=== PATIENT | female | born 1935 | race Caucasian/White ===

== ENCOUNTER → 2019-02-19 11:19 | Outpatient (CLI) | payer MEDICARE, OTHER, SELFPAY ==
--- NOTE | 2019-02-19 11:23 | US_ITS ---
STUDY: RENAL ULTRASOUND - COMPLETE REASON FOR EXAM: Female, 83 years old. Chronic renal disease TECHNIQUE: Ultrasound evaluation of the kidneys was performed with real-time and static maloney-scale imaging. COMPARISON: None. FINDINGS: RIGHT KIDNEY: Normal location of the right kidney, which is normal in size. The right kidney measures 11.3 x 4.1 x 4.3 cm. There is a normal cortex of the right kidney. The renal cortex measures 1.2 cm. There is no right renal mass or cyst. There are no right renal calculi. There is no right hydronephrosis. DISTAL RIGHT URETER: There is non-visualization of the distal right ureter. There is no demonstrated right ureterovesical junction calculus. There is a visualized right ureteral jet. LEFT KIDNEY: Normal location of the left kidney, which is normal in size. The left kidney measures 10.7 x 3.9 x 5.1 cm. There is a normal cortex of the left kidney. The renal cortex measures 1 cm. There is no left renal mass or cyst. There are no left renal calculi. There is no left hydronephrosis. DISTAL LEFT URETER: There is non-visualization of the distal left ureter. There is no demonstrated left ureterovesical junction calculus. There is a visualized left ureteral jet. Diffusely increased cortical echoes consistent with nonspecific renal parenchymal disease BLADDER: The distended urinary bladder has a volume of 7.2 ml. US/Kidney and Bladder IMPRESSION: Nonspecific renal parenchymal disease Electronically Signed: Phi Mccartney MD at 20:08 EDT , Service support ,
== END ==
PROVIDERS: Family Provider Family Medicine; PCP Family Medicine; Referring Provider Internal Medicine Nephrology; Visit Provider Internal Medicine Nephrology
DX: N18.3 Chronic kidney disease, stage 3 (moderate) (principal)
CPT/HCPCS: 76770

== ENCOUNTER 2021-03-12 08:50 | Inpatient (IN) | payer MEDICARE, OTHER, SELFPAY ==
[2021-03-12] VITALS (10 sets, daily range): BP systolic 121–152; BP diastolic 63–91; PULSE 67–122; RESP 16; TEMP 36.5–37.4; O2SAT 97–99; BMI 31.4; BMI 30.7
--- NOTE | 2021-03-12 09:02 | EKG12_ITS ---
Test Reason : DIZZINESS Blood Pressure : / mmHG Vent. Rate : 090 BPM Atrial Rate : 300 BPM P-R Int : 000 ms QRS Dur : 088 ms QT Int : 378 ms P-R-T Axes : 000 -06 168 degrees QTc Int : 462 ms Atrial fibrillation /Flutter Inferior infarct , age undetermined Nonspecific ST-Segment Abnormality Abnormal ECG Confirmed by MAYO BOSTON, SALINA ([id number]), movie editor ROMEL CLAUDIO ([id number]) on 03/17/2021 8:52:21 AM Referred By: RUTHIE Confirmed By:SALINA HUBER MD
--- NOTE | 2021-03-12 09:02 | CT_ITS ---
EXAM DESCRIPTION: Unenhanced CT scan of the head CLINICAL HISTORY: 85 years Female, dizziness COMPARISON: None. TECHNIQUE: A CT scan of the head was performed without IV contrast in the axial plane. Coronal and sagittal reconstruction images were also obtained. This exam was performed according to our departmental dose-optimization program, which includes automated exposure control, adjustment of the mA and/or kV according to patient size and/or use of iterative reconstruction technique. FINDINGS: The main, medulla, and cerebellum appear to be normal. The ventricles and sulci are normal in size and shape. There are some periventricular hyperintensities identified probably due to arteriosclerotic demyelinating changes. The basal ganglia appear to be normal. The inner and outer tables of the skull are intact. The frontal, ethmoid, maxillary, and sphenoid sinuses are normal. The mastoid air cells are normal. CT/Brain/Head without Contrast IMPRESSION: Normal CT scan of the head. Electronically Signed: Jose Raul Cazares DO at 9:44 EDT Tel , Service support ,
--- NOTE | 2021-03-12 09:12 | EDS_ITS ---
HPI History of Present Illness Chief Complaint: Dizziness Informant: patient and family Onset/Context/Timing Onset: Yesterday Timing: Intermittent Current Severity: Mild Maximum Severity: Mild Narrative Narrative: 85-year-old female history of hypertension. Reportedly had lightheadedness yesterday and fell 5 different times. No LOC. Denies being on any blood thinners. States that she hit her head on some of these falls her back and her right knee. She denies any nausea, vomiting or diarrhea. Denies any fever or chills. No dysuria. No recent med changes. No recent hospitalization. Denies any chest pain, shortness of breath or abdominal pain. Prior similar symptoms: No Recent Illness/Hospitalization: No PFSH PFSH Home Medications diltiazem HCl 180 mg PO DAILY 03/12/21 [History Last Taken Unknown] ergocalciferol (vitamin D2) 1,250 unit PO DAILY 03/12/21 [History Last Taken Unknown] labetalol 200 mg PO DAILY 03/12/21 [History Last Taken Unknown] lisinopril 20 mg PO DAILY 03/12/21 [History Last Taken Unknown] pravastatin 40 mg PO DAILY 03/12/21 [History Last Taken Unknown] triamterene-hydrochlorothiazid 1 tab PO DAILY 03/12/21 [History Last Taken Unknown] Allergy/AdvReac Type Severity Reaction Status Date / Time No Known Allergies Allergy Verified 03/12/21 08:50 Social History Smoking Status: Never smoker ROS ROS ED ROS Narrative Denies recent illness. Review of Systems ROS Unobtainable: Denies due to encephalopathy Constitutional Constitutional ED: Denies chills or fever(s) Eyes Eyes: Denies change in vision ENT ENT ED: Denies ear pain or sore throat Cardiovascular Cardiovascular: Denies chest pain Respiratory/Chest Respiratory/Chest: Denies cough or dyspnea Gastrointestinal Gastrointestinal: Denies abdominal pain, diarrhea, melena, nausea or vomiting Genitourinary Genitourinary ED: Denies dysuria or hematuria Musculoskeletal Musculoskeletal: Denies arthralgias or myalgias Integumentary Denies rash Neurologic Neurologic: Denies headache(s) Psychiatric Psychiatric: Denies depression Endocrine Endocrinology: Denies polyuria Allergic/Immunologic Allergic/Immunologic ED: Denies urticaria EXAM Physical Exam Narrative Exam Narrative: Elderly female no acute distress. Vital signs are stable af ebrile. Complaining of recent lightheadedness. HEENT exam unremarkable. No signs of trauma on her head. Mild tenderness to the scalp. Pupils round react light. No facial droop. Normal speech. Neck nontender. Lungs clear to auscultation bilaterally. Heart exam is consistent with A. fib with a rate of about 90. Abdomen is soft and nontender normal bowel sounds no peritoneal signs. Chest wall nontender. Moving all 4 extremities. Mild tenderness of the right knee. No deformity. He normal range of motion. No swelling. Back nontender. Kyphotic. Spine nontender. No bruising. Neurologically she is awake alert with no focal motor deficits. NIH score 0. Lying in bed. Const Vital Signs: 03/12/21 08:51 03/12/21 09:24 03/12/21 09:58 Temperature 97.7 F L Temperature Source Temporal Pulse Rate 67 Pulse Rate [Lying] 88 Pulse Rate [Sitting] 94 Pulse Rate [Standing] 122 H Respiratory Rate 16 Respiratory Effort Normal Non-Labored Respiratory Pattern Normal Blood Pressure 131/91 H Blood Pressure [Lying] 152/86 H Blood Pressure [Sitting] 138/78 H Blood Pressure [Standing] 128/76 H Blood Pressure Mean 104 Blood Pressure Mean [Lying] 108 Blood Pressure Mean [Sitting] 98 Blood Pressure Mean [Standing] 93 Pulse Ox 97 Oxygen Delivery Method Room Air Positive well nourished and well developed; Negative for unkempt General Appearance ED: well developed and NAD; Negative for unkempt HEENT Reports moist mucous membranes tenderness Eyes PERRL and EOMs intact bilaterally Neck no lymphadenopathy, supple and no JVD General: Negative for tenderness Chest Wall inspection of chest normal and palpation of chest normal Resp normal respiratory effort and clear to auscultation bilaterally Auscultation: Negative for rales, rhonchi, wheezes or diminished lung sounds Cardio no murmurs GI normal to inspection, nondistended, normoactive bowel sounds, non-tender, non- distended and no masses Inspection: Negative for abdominal distention Auscultation: normoactive bowel sounds Palpation: soft; Negative for tender, guarding or rebound tenderness present Back/Spine no CVA tenderness General Back: Negative for CVA tenderness Cervical Spine: Negative for cervical spine tenderness Thoracic Spine / Upper Back: Negative for thoracic spinal tenderness Extremity normal to inspection Extremity Narrative: Tenderness right knee no deformity. Normal flexion- extension. General Extremety ED: Yes tenderness Neuro oriented x3 and CN's II-XII intact bilaterally Sensorium / Orientation: alert; Negative for lethargic or stuporous Motor Exam: strength 5/5 throughout Psych mental status grossly normal Appearance: Negative for unkempt Attitude: No agitated Mood & Affect: Negative for depressed, anxious or tearful Skin no rashes or lesions noted and no wounds MDM MDM MDM Narrative Medical decision making narrative: Elderly female with falls. Exam benign. Mild tenderness to her right knee but no gross deformity. CAT scan of her brain labs orthostatics will be obtained. She will need to be ambulated. Repeat exam patient doing well at 1120. I discussed all test results with both her and the family. Nurses attempted a walker she was extremely unsteady on her feet and they could not really even move past her standing at bedside. Also her blood pressure does seem to drop when she stands and her heart rate goes up. This may be all secondary to her A. fib which appears to be new after speaking to her primary care physician. I have the hospitalist on page. Lab Data Attestation: I reviewed the patient's lab results. Lab results narrative: CBC shows a white count 13.4. Hemoglobin 13. Chemistries unremarkable gap 11. Creatinine 1.83. Urinalysis unremarkable no signs of infection. No nitrates or white cells nor any bacteria. I did speak to her primary care physician renal insufficiency is her baseline. Labs: Laboratory Results - last 24 hr 03/12/21 03/12/21 03/12/21 09:18 09:18 10:13 WBC 13.4 H RBC 4.47 Hgb 13.5 Hct 40.3 MCV 90.2 MCH 30.2 MCHC 33.5 RDW Std Deviation 39.7 RDW Coeff of Fish 12.0 Plt Count 237 MPV 10.9 Immature Gran % (Auto) 0.600 Neut % (Auto) 83.0 H Lymph % (Auto) 6.6 L Butts % (Auto) 9.2 Eos % (Auto) 0.2 Baso % (Auto) 0.4 Absolute Neuts (auto) 11.1 H Absolute Lymphs (auto) 0.89 Nucleated RBC % 0 Sodium 140 Potassium 3.8 Chloride 105 Carbon Dioxide 24.0 Anion Gap 11 BUN 41 H Creatinine 1.83 H Estim Creat Clear Calc 18.10 Est GFR (MDRD) Af Amer 34 L Est GFR (MDRD) Non-Af 28 L BUN/Creatinine Ratio 22.4 H Glucose 158 H Calcium 9.5 Urine Color Yellow Urine Clarity Clear Urine pH 5.0 Ur Specific [place] 1.015 Urine Protein Negative Urine Glucose (UA) Normal Urine Ketones Negative Urine Occult Blood Negative Urine Nitrite Negative Urine Bilirubin Negative Urine Urobilinogen Normal Ur Leukocyte Esterase Negative Urine RBC 0 SEEN Urine WBC 0 SEEN Ur Squamous Epith Cells 0 SEEN Urine Bacteria 0 SEEN Urine Mucus 0 SEEN Radiography Diagnostic Testing: Radiology Impression Brain CT 03/12/21 09:02 IMPRESSION: Normal CT scan of the head. Electronically Signed: Jose Raul Cazares DO at 9:44 EDT Tel , Service support , Knee X-Ray 03/12/21 09:32 IMPRESSION: Chondrocalcinosis is noted involving the articular cartilage of the medial and lateral compartments of the knee. Electronically Signed: Jose Raul Cazares DO at 10:02 EDT Tel , Service support , Chest X-Ray 03/12/21 10:25 IMPRESSION: Normal portable chest. Electronically Signed: Jose Raul Cazares DO at 11:08 EDT Tel , Service support , Chest x-ray portable 1 view shows borderline cardiomegaly no acute process interpreted myself. Left knee x-ray shows chronic changes no acute process interpreted by myself and the radiologist. CAT scan of the brain shows no acute abnormalities read by the radiologist and reviewed by me. Rhythm Strip Rhythm Strip: A-fib Rate: 90 Ectopy: None EKG Initial EKG: Attestation: I personally reviewed and interpreted this EKG as follows: Interpretation: Atrial Fibrillation Comments: Atrial fibrillation rate of 90 no old EKG available available for comparison. Discharge Plan Triage Chief Complaint: Dizziness ED Provider: Savage Souza Dx/Rx/DC Orders Clinical Impression: Fall, Episodic lightheadedness, Atrial fibrillation, Chronic renal insuffici ency Prescriptions: No Action labetalol 200 mg tablet 200 mg PO DAILY RF: 0 pravastatin 40 mg tablet 40 mg PO DAILY RF: 0 diltiazem HCl 180 mg capsule,extended release 24hr 180 mg PO DAILY RF: 0 lisinopril 20 mg tablet 20 mg PO DAILY RF: 0 triamterene-hydrochlorothiazid 75-50 mg tablet 1 tab PO DAILY RF: 0 ergocalciferol (vitamin D2) 1,250 mcg (50,000 unit) capsule 1,250 unit PO DAILY RF: 0 Primary Care Provider: Phi Zapata Referrals: Phi Zapata MD [Primary Care Provider] - Disposition Disposition: Acute Care Hospital [facility]
[2021-03-12 09:23] LABS: Absolute Lymphocyte Count 0.89 X10^3/uL (0.83-4.51); Absolute Neutrophil Count 11.1 X10^3/uL (2.0-7.7); Basophil# 0.05 X10^3/uL; Basophil% 0.4 % (0-1); Eosinophil# 0.03 X10^3/uL; Eosinophils% 0.2 % (0-5); Hematocrit 40.3 % (37-47); Hemoglobin 13.5 g/dL (12.0-15.0); Lymphocyte # 0.89 X10^3/ul (0.83-4.51); Lymphocyte % 6.6 % (19-41); Mean Corp Hgb Conc 33.5 g/dL (32-36); Mean Corpuscular Hgb 30.2 pg (27.0-32.0); Mean Corpuscular Volume 90.2 fL (81-99); Mean Platelet Vol. 10.9 fl (6.2-12.0); Monocyte# 1.23 X10^3/uL; Monocyte% 9.2 % (0-10); NRBC Flagged by Analyzer 0 % (0-5); Neutrophil # 11.12 X10^3/uL (2.7-7.7); Platelet Count 237 K/mm3 (150-450); RBC Distribution Width SD 39.7 fl (35.1-43.9); Red Blood Count 4.47 M/mm3 (4.2-5.4); White Blood Count 13.4 K/mm3 (4.4-11.0)
--- NOTE | 2021-03-12 09:32 | RAD_ITS ---
INDICATION: fall EXAMINATION/TECHNIQUE: X-RAY - RIGHT XR Knee Complete 4 Views or More 4 VIEWS COMPARISON: None. FINDINGS: Studies of the right knee in 4 projections shows chondrocalcinosis involving the articular cartilage of the medial lateral compartments of the right knee. There is no evidence of fracture, dislocation, or bony destruction. RAD/Knee 4 or More Views IMPRESSION: Chondrocalcinosis is noted involving the articular cartilage of the medial and lateral compartments of the knee. Electronically Signed: Jose Raul Cazares DO at 10:02 EDT Tel , Service support ,
[2021-03-12 09:35] LABS: Anion Gap 11 (5-15); BUN 41 mg/dL (7-18); BUN/Creat Ratio 22.4 RATIO (10-20); Calcium,Total 9.5 mg/dL (8.5-10.1); Chloride 105 mmol/L (98-107); Creatinine, Serum 1.83 mg/dL (0.55-1.02); EST Glomerular Filtration Rate 28 mL/min (>60); Est Glom Filt Rate - Afr Amer 34 mL/min (>60); Glucose 158 mg/dL (74-106); Potassium 3.8 mmol/L (3.5-5.1); Sodium Level 140 mmol/L (136-145)
[2021-03-12 10:20] LABS: Bacteria 0 SEEN /hpf (None Seen); Mucous, Urine 0 SEEN /hpf (<or=2+); Red Blood Cells-Urine 0 SEEN /hpf (0-5); Squamous Epithelial Cells - UA 0 SEEN /hpf (5-10); White Blood Cells 0 SEEN /hpf (0-5)
[2021-03-12 10:21] LABS: Color, Urine Yellow (Yellow); Glucose, Dipstick Normal (Normal); Ketone-Dipstick Negative (Negative); Leukocyte Esterase-Dipstick Negative /ul (Negative); Nitrite-Dipstick Negative (Negative); Occult Blood-Urine Negative /ul (Negative); Protein-Dipstick Negative (Negative); Specific Gravity, Urine 1.015 (1.002-1.030); Urine Bilirubin Dipstick Negative (Negative); Urine Clarity Clear (Clear); Urine Urobilinogen Normal (Normal)
--- NOTE | 2021-03-12 10:25 | RAD_ITS ---
EXAM DESCRIPTION: PORTABLE AP CHEST CLINICAL HISTORY: 85 years Female, elevated WBC elevated WBC COMPARISON: None FINDINGS: The thorax is intact. The heart and mediastinum appear to be within normal limits. The lungs appear to be well areated without evidence of pneumonic consolidation or pleural effusion. RAD/Chest 1 View (Portable) IMPRESSION: Normal portable chest. Electronically Signed: Jose Raul Cazares DO at 11:08 EDT Tel , Service support ,
--- NOTE | 2021-03-12 13:08 | ECHOD_ITS ---
Reason For Study: ATRIAL FIB-FLUTTER Procedure This was a 2D Doppler, Color Flow transthoracic echocardiogram. Exam performed portable in patient room. Left Ventricle Normal left ventricle. The estimated ejection fraction is EF 55-60 %. Right Ventricle Normal RV size. Normal systolic function. Atria The left atrium is mildly enlarged. Mitral Valve There is moderate mitral annular calcification. Mild (1+) eccentric mitral valve insufficiency. Tricuspid Valve Normal tricuspid valve. Mild tricuspid valve insufficiency. Aortic Valve Aortic sclerosis, no stenosis. Trivial aortic valve insufficiency. Pulmonic Valve The pulmonic valve is not well visualized. Great Vessels Normal aortic root. Pericardium/Pleural No pericardial effusion. MMode/2D Measurements & Calculations LVIDd: 3.8 cm IVSd: 1.1 cm Ao root diam: 3.0 cm LVIDs: 2.5 cm LVPWd: 1.1 cm RVDd: 3.2 cm FS: 33.3 % LAV(MOD-bp): 49.5 ml LVAd ap4: 18.1 cm2 SV(MOD-sp4): 29.7 ml LAV(MOD-bp) Indexed: 28.3 ml/m2 LVLd ap4: 5.8 cm LAV(MOD-sp2): 49.7 ml EDV(MOD-sp4): 45.9 ml LAV(MOD-sp4): 46.3 ml EDV(sp4-el): 47.6 ml LVAs ap4: 9.2 cm2 LVLs ap4: 4.9 cm ESV(MOD-sp4): 16.2 ml ESV(sp4-el): 14.9 ml EF(MOD-sp4): 64.6 % EF(sp4-el): 68.7 % SV(sp4-el): 32.7 ml LA A4 area: 18.2 cm2 LA dimension(2D): 4.1 cm RA A4 area: 16.6 cm2 Doppler Measurements & Calculations MV E max jacob: 133.7 cm/sec Ao V2 max: 150.6 cm/sec LV V1 max: 130.0 cm/sec Ao max P.2 mmHg LV V1 max P.8 mmHg PA V2 max: 107.6 cm/sec PI end-d jacob: 119.8 cm/sec TR max jacob: 330.7 cm/sec TR max P.9 mmHg MV P1/2t-pr_phl: 84.7 msec ECHO/Echo Complete Interpretation Summary The estimated ejection fraction is EF 55-60 %. Normal LV systolic function Ordering Physician: Warner Gold Referring Physician: ANILA CROCKER Performed By: Zee Garvey RDCS
[2021-03-12] MEDS: 0.9% Normal Saline 1,000 ML 75 ML IV (13:32)
[2021-03-12] MEDS: Heparin Injection (Vial) 5,000 UNIT/ML VIAL 5000 UNIT SC ×2 (13:32→20:58)
--- NOTE | 2021-03-12 13:35 | PCM.HP.STD ---
Documented by User: RODERICK Corcoran 03/12/21 13:59 HPI - General General Date of Admission: 03/12/21 Date of Service: 03/12/21 Chief Complaint: Dizziness HPI Narrative GORDON GUAJARDO, is a 85 F who presents with complaints of lightheadedness and reports that she fell approximately 5 times yesterday stating she hit her back and her right knee during these falls. Patient denies losing consciousness. Patient denies fever, chills, shortness of breath, chest pain, abdominal pain, nausea, vomiting, diarrhea. [facility] Medical History (Updated 03/12/21 @ 13:49 by RODERICK Corcoran) H/O malignant melanoma of skin High cholesterol Hypertension Migraine Skin cancer Home Medications diltiazem HCl 180 mg PO DAILY 03/12/21 [History Last Taken Unknown] ergocalciferol (vitamin D2) 1,250 unit PO QWEEK 03/12/21 [History Last Taken Unknown] labetalol 200 mg PO DAILY 03/12/21 [History Last Taken Unknown] lisinopril 20 mg PO DAILY 03/12/21 [History Last Taken Unknown] pravastatin 40 mg PO DAILY 03/12/21 [History Last Taken Unknown] triamterene-hydrochlorothiazid 1 tab PO DAILY 03/12/21 [History Last Taken Unknown] Allergy/AdvReac Type Severity Reaction Status Date / Time No Known Allergies Allergy Verified 03/12/21 08:50 Family History (Updated 03/12/21 @ 13:38 by RODERICK Corcoran) Brother Diabetes Sister Hypertension Mother Hypertension Surgical History (Updated 03/12/21 @ 13:40 by RODERICK Corcoran) H/O: hysterectomy Social History (Updated 03/12/21 @ 13:40 by RODERICK Corcoran) Smoking Status: Never smoker alcohol intake: never substance use type: does not use ROS Constitutional Constitutional: Denies anorexia, chills, fatigue or weakness Cardiovascular Cardiovascular: Reports lightheadedness; Denies chest pain, edema, palpitations or syncope Respiratory/Chest Respiratory/Chest: Denies cough, shortness of breath at rest or shortness of breath with exertion Gastrointestinal Gastrointestinal: Denies abdominal pain, constipation, diarrhea, nausea or vomiting Genitourinary Genitourinary: Denies dysuria Musculoskeletal Musculoskeletal: Reports back pain and joint pain; Denies extremity pain or joint stiffness Integumentary Integumentary: Denies dry skin or wounds Neurologic Neurologic: Denies abnormal gait, abnormal speech, confusion or dizziness Psychiatric Psychiatric: Denies anxiety or depression Endocrine Endocrinology: Denies change in body appearance Hematologic/Lymphatic Hematologic/Lymphatic: Denies easy bleeding or easy bruising Vital Signs Vital Signs Vital Signs: 03/12/21 08:51 03/12/21 09:24 03/12/21 09:58 Temperature 97.7 F L Temperature Source Temporal Pulse Rate 67 Pulse Rate [Lying] 88 Pulse Rate [Sitting] 94 Pulse Rate [Standing] 122 H Respiratory Rate 16 Respiratory Effort Normal Non-Labored Respiratory Pattern Normal Blood Pressure 131/91 H Blood Pressure [Lying] 152/86 H Blood Pressure [Sitting] 138/78 H Blood Pressure [Standing] 128/76 H Blood Pressure Mean 104 Blood Pressure Mean [Lying] 108 Blood Pressure Mean [Sitting] 98 Blood Pressure Mean [Standing] 93 Blood Pressure Source Blood Pressure Position Blood Pressure Location Pulse Ox 97 Oxygen Delivery Method Room Air Oxygen Flow Rate (L/min) 03/12/21 12:08 03/12/21 12:18 03/12/21 12:51 Temperature 97.7 F L Temperature Source Temporal Pulse Rate 83 83 89 Pulse Rate [Lying] Pulse Rate [Sitting] Pulse Rate [Standing] Respiratory Rate 16 16 Respiratory Effort Respiratory Pattern Blood Pressure 128/80 H 128/80 H Blood Pressure [Lying] Blood Pressure [Sitting] Blood Pressure [Standing] Blood Pressure Mean 96 96 Blood Pressure Mean [Lying] Blood Pressure Mean [Sitting] Blood Pressure Mean [Standing] Blood Pressure Source Blood Pressure Position Blood Pressure Location Pulse Ox 98 98 Oxygen Delivery Method Nasal Cannula Nasal Cannula Oxygen Flow Rate (L/min) 2 2 03/12/21 13:04 Temperature 99.4 F H Temperature Source Temporal Pulse Rate 81 Pulse Rate [Lying] Pulse Rate [Sitting] Pulse Rate [Standing] Respiratory Rate 16 Respiratory Effort Respiratory Pattern Blood Pressure 134/70 H Blood Pressure [Lying] Blood Pressure [Sitting] Blood Pressure [Standing] Blood Pressure Mean 91 Blood Pressure Mean [Lying] Blood Pressure Mean [Sitting] Blood Pressure Mean [Standing] Blood Pressure Source Monitor Blood Pressure Position Semi-Fowlers Blood Pressure Location Left Arm Pulse Ox 99 Oxygen Delivery Method Room Air Oxygen Flow Rate (L/min) Weight Weight: 167 lb 1.766 oz Body Mass Index (BMI) 30.7 Physical Exam Const alert and oriented x3 General Appearance: cooperative HEENT normocephalic and head/scalp atraumatic Eyes conjunctivae normal and no scleral icterus Neck supple and no JVD General: trachea midline Resp normal respiratory effort, normal air movement and clear to auscultation bilaterally Cardio regular rate, regular rhythm, S1 normal heart sound and S2 normal heart sound GI normal to inspection, nondistended, normoactive bowel sounds, soft to palpation and non-tender Extremity normal capillary refill and no clubbing, cyanosis or edema Peripheral Pulses: Yes pulses 2+ throughout Right Lower Extremity: knee joint inspection (Normal, no deformity noted), palpation (Tender), ROM (Full range of motion) and neurovascular exam (Intact) Skin General Skin Exam: no breakdown and turgor normal Lesions: no lesions Rashes: no rashes Neuro no focal motor deficits and no sensory deficits noted Speech: speech normal Motor Exam: general weakness Psych thought process normal, cooperative and affect normal Appearance: appropriate Results Lab / Micro Data Result Diagrams: 03/12/21 09:18 03/12/21 09:18 Labs: Laboratory Results - last 24 hr 03/12/21 09:18: WBC 13.4 H, RBC 4.47, Hgb 13.5, Hct 40.3, MCV 90.2, MCH 30.2, MCHC 33.5, RDW Std Deviation 39.7, RDW Coeff of Fish 12.0, Plt Count 237, MPV 10.9, Immature Gran % (Auto) 0.600, Neut % (Auto) 83.0 H, Lymph % (Auto) 6.6 L, [place] % (Auto) 9.2, Eos % (Auto) 0.2, Baso % (Auto) 0.4, Absolute Neuts (auto) 11.1 H, Absolute Lymphs (auto) 0.89, Nucleated RBC % 0 03/12/21 09:18: Sodium 140, Potassium 3.8, Chloride 105, Carbon Dioxide 24.0, Anion Gap 11, BUN 41 H, Creatinine 1.83 H, Estim Creat Clear Calc 18.10, Est GFR (MDRD) Af Amer 34 L, Est GFR (MDRD) Non-Af 28 L, BUN/Creatinine Ratio 22.4 H, Glucose 158 H, Calcium 9.5 03/12/21 10:13: Urine Color Yellow, Urine Clarity Clear, Urine pH 5.0, Ur Specific [place] 1.015, Urine Protein Negative, Urine Glucose (UA) Normal, Urine Ketones Negative, Urine Occult Blood Negative, Urine Nitrite Negative, Urine Bilirubin Negative, Urine Urobilinogen Normal, Ur Leukocyte Esterase Negative, Urine RBC 0 SEEN, Urine WBC 0 SEEN, Ur Squamous Epith Cells 0 SEEN, Urine Bacteria 0 SEEN, Urine Mucus 0 SEEN Rhythm Strip Rhythm Strip: A-fib Rate: 90 Ectopy: None Radiology Impression Brain CT 03/12/21 09:02 IMPRESSION: Normal CT scan of the head. Electronically Signed: Jose Raul Cazares DO at 9:44 EDT Tel , Service support , Knee X-Ray 03/12/21 09:32 IMPRESSION: Chondrocalcinosis is noted involving the articular cartilage of the medial and lateral compartments of the knee. Electronically Signed: Jose Raul Cazares DO at 10:02 EDT Tel , Service support , Chest X-Ray 03/12/21 10:25 IMPRESSION: Normal portable chest. Electronically Signed: Jose Raul Cazares DO at 11:08 EDT Tel , Service support , Assessment & Plan Assessment/Plan (1) Atrial fibrillation: QUALIFIERS: Atrial fibrillation type: unspecified Qualified Code(s): I48.91 - Unspecified atrial fibrillation (2) Chronic renal insufficiency: QUALIFIERS: Chronic kidney disease stage: stage 4 (severe) Qualified Code(s): N18.4 - Chronic kidney disease, stage 4 (severe) (3) Episodic lightheadedness: PLAN: 1. Atrial fibrillation -Admit to PCU for cardiac monitoring -EKG with new symptom onset or arrhythmia -Will obtain CBC, BMP, TSH in a.m. -Obtain echo in a.m. -Vital signs per protocol 2. Episodic lightheadedness with multiple falls -Likely secondary to above -PT and OT to eval and treat -Patient states she landed on her back and knee, no obvious injuries noted. Brain CT, knee x-ray and chest x-ray all negative for acute findings. 3. Chronic kidney disease stage IV -Upon review of labs from 12/2020 patient has stage IV chronic kidney disease baseline GFR 29 -Patient's current CMP consistent with previous results -CMP daily, trend BUN, creatinine, GFR 4. Hypertension -Continue labetalol, lisinopril, triamterene/hydrochlorothiazide and Cardizem. -Vital signs per protocol, trend BP and heart rate 5. Hyperlipidemia -Continue pravastatin DVT prophylaxis-subcu heparin This patient was seen by RODERICK Corcoran under the supervision of Dr. oGld. Documented by User: Dr. Warner Gold MD 03/12/21 17:04 HPI - General General Date of Admission: 03/12/21 [facility] Medical History (Updated 03/12/21 @ 13:49 by RODERICK Corcoran) H/O malignant melanoma of skin High cholesterol Hypertension Migraine Skin cancer Home Medications diltiazem HCl 180 mg PO DAILY 03/12/21 [History Last Taken Unknown] ergocalciferol (vitamin D2) 1,250 unit PO QWEEK 03/12/21 [History Last Taken Unknown] labetalol 200 mg PO DAILY 03/12/21 [History Last Taken Unknown] lisinopril 20 mg PO DAILY 03/12/21 [History Last Taken Unknown] pravastatin 40 mg PO DAILY 03/12/21 [History Last Taken Unknown] triamterene-hydrochlorothiazid 1 tab PO DAILY 03/12/21 [History Last Taken Unknown] Allergy/AdvReac Type Severity Reaction Status Date / Time No Known Allergies Allergy Verified 03/12/21 08:50 Family History (Updated 03/12/21 @ 13:38 by RODERICK Corcoran) Brother Diabetes Sister Hypertension Mother Hypertension Surgical History (Updated 03/12/21 @ 13:40 by RODERICK Corcoran) H/O: hysterectomy Social History (Updated 03/12/21 @ 13:40 by RODERICK Corcoran) Smoking Status: Never smoker alcohol intake: never substance use type: does not use Results Lab / Micro Data Result Diagrams: 03/12/21 09:18 03/12/21 09:18 Charges/Coding Addendum Addendum: Dr. Gold: I personally reviewed the chart and examined the patient, and agree with the above findings. 85-year-old female presented to the hospital due to weakness and multiple falls over the last 24 hours. She states that she has a history of palpitations but is never been told that she has A. fib, which presented to the ER she was found to be in A. fib and did have an episode of tachycardia up to 122. Per the ED physician this was when she was moving around, she was extremely dizzy when I tried to get her up to do orthostatic blood pressures. We will try to obtain [facility] information about her previous cardiac work-ups, she is unsure if she has had an echo before. We will continue with her home blood pressure medications including labetalol and Cardizem and will obtain a echo. If necessary can increase the dose of her Cardizem. We will continue with IV fluids and check a TSH as well. According to her PCP through the ED physician her creatinine is at baseline at 1.8. Her [id number] is a 4 based on age and gender as well as her history of hypertension, she would benefit from a blood thinner though she seems little bit hesitant. We will discuss this further prior to discharge. Visit Charges Inpatient E&M: 11083 Init Hosp L3
[2021-03-12 14:50] LABS: Troponin-I HS 14.4 pg/mL (3.0-53.7)
[2021-03-13] VITALS (13 sets, daily range): BP systolic 95–145; BP diastolic 68–91; PULSE 68–136; RESP 16–20; TEMP 36.6–36.9; O2SAT 95–100
[2021-03-13] MEDS: 0.9% Normal Saline 1,000 ML 75 ML IV ×2 (02:21→14:07)
[2021-03-13] MEDS: Heparin Injection (Vial) 5,000 UNIT/ML VIAL 5000 UNIT SC (05:29)
[2021-03-13 05:38] LABS: Absolute Lymphocyte Count 1.74 X10^3/uL (0.83-4.51); Absolute Neutrophil Count 4.5 X10^3/uL (2.0-7.7); Basophil# 0.06 X10^3/uL; Basophil% 0.8 % (0-1); Eosinophil# 0.09 X10^3/uL; Eosinophils% 1.2 % (0-5); Hematocrit 36.6 % (37-47); Hemoglobin 12.2 g/dL (12.0-15.0); Lymphocyte # 1.74 X10^3/ul (0.83-4.51); Lymphocyte % 23.3 % (19-41); Mean Corp Hgb Conc 33.3 g/dL (32-36); Mean Corpuscular Hgb 30.4 pg (27.0-32.0); Mean Corpuscular Volume 91.3 fL (81-99); Mean Platelet Vol. 10.5 fl (6.2-12.0); Monocyte# 1.05 X10^3/uL; Monocyte% 14.1 % (0-10); NRBC Flagged by Analyzer 0 % (0-5); Neutrophil % 60.2 % (47-70); Platelet Count 196 K/mm3 (150-450); RBC Distribution Width CV 12.1 % (11.6-14.6); RBC Distribution Width SD 40.6 fl (35.1-43.9); Red Blood Count 4.01 M/mm3 (4.2-5.4); White Blood Count 7.5 K/mm3 (4.4-11.0)
[2021-03-13 06:12] LABS: Anion Gap 7 (5-15); BUN 32 mg/dL (7-18); BUN/Creat Ratio 20.3 RATIO (10-20); Calcium,Total 8.6 mg/dL (8.5-10.1); Chloride 108 mmol/L (98-107); Creatinine, Serum 1.58 mg/dL (0.55-1.02); EST Glomerular Filtration Rate 33 mL/min (>60); Est Glom Filt Rate - Afr Amer 40 mL/min (>60); Glucose 123 mg/dL (74-106); Potassium 3.4 mmol/L (3.5-5.1); Sodium Level 140 mmol/L (136-145); Thyroid Stim Hormone (TSH) 2.99 uIU/mL (0.358-3.74)
[2021-03-13] MEDS: Potassium Chloride Oral Tablet 20 MEQ 60 MEQ PO (08:27)
[2021-03-13] MEDS: Pravastatin 40 MG Tablet PO (09:25)
[2021-03-13] MEDS: dilTIAZem CD 180 MG Capsule PO (09:25)
[2021-03-13] MEDS: Lisinopril 20 MG Tablet PO (09:25)
[2021-03-13] MEDS: Triamterene 75MG/Hctz 50MG Tablet 1 TABLET PO (09:25)
[2021-03-13] MEDS: Labetalol 200 MG Tablet PO (09:25)
--- NOTE | 2021-03-13 10:55 | CON.PCM.CA_ITS ---
Documented by User: MAYLIN Dao 03/13/21 11:44 Assessment & Plan Assessment/Plan (1) New onset atrial fibrillation: PLAN: Patient's atrial fibrillation is a new onset. She did have an echocardiogram which demonstrated normal LV function. We will stop her labetalol and start her on metoprolol as her falling could have been orthostatic. She will continue with her diltiazem. Feel that it is okay for patient to start on low-dose Eliquis. She does have a CHADS2 score of 3. We will continue to monitor her rate and rhythm. Patient would be a candidate to undergo a cardioversion after she has been anticoagulated for the appropriate amount of time. (2) Hypertension: PLAN: Patient's blood pressure is controlled at this time. We will continue to monitor. Will adjust accordingly. She will continue with her metoprolol and her diltiazem. We will stop her labetalol. (3) High cholesterol: PLAN: This is previously been managed by her primary care doctor. She will continue with her moderate intensity statin. HPI Consult Data Date of Consult: 03/13/21 HPI Narrative HPI Narrative: This is an 85-year-old female that presented to the emergency room with lightheadedness and falling. She states that she fell 5 times on Tuesday evening. She does not recall losing consciousness however she is unaware of how she ended up on the floor. We were consulted for new onset atrial fibrillation. When talking with patient she previously was established with Dr. Paul at [facility]. She has not seen him since he has retired. She states that she was seeing him for her hypertension. Her medications have been not adjusted. She does see her PCP there routinely. She is not aware of any arrhythmias. She does not have any chest pain or worsening shortness of breath. She does get short of breath with exertion however does not feel that this is worsened. She is able to take care of herself at home. She does not have any bleeding issues. She does not have any claudication issues. She does not have any lower extremity edema. [facility] Medical History (Updated 03/13/21 @ 11:11 by Maricruz CARLISLE PA) H/O malignant melanoma of skin High cholesterol Hypertension Migraine New onset atrial fibrillation Skin cancer Home Medications diltiazem HCl 180 mg PO DAILY 03/12/21 [History Last Taken Unknown] ergocalciferol (vitamin D2) 1,250 unit PO QWEEK 03/12/21 [History Last Taken Unknown] labetalol 200 mg PO DAILY 03/12/21 [History Last Taken Unknown] lisinopril 20 mg PO DAILY 03/12/21 [History Last Taken Unknown] pravastatin 40 mg PO DAILY 03/12/21 [History Last Taken Unknown] triamterene-hydrochlorothiazid 1 tab PO DAILY 03/12/21 [History Last Taken Unknown] Allergy/AdvReac Type Severity Reaction Status Date / Time No Known Allergies Allergy Verified 03/12/21 08:50 Family History (Updated 03/12/21 @ 13:38 by RODERICK Corcoran) Brother Diabetes Sister Hypertension Mother Hypertension Surgical History (Updated 03/12/21 @ 13:40 by RODERICK Corcoran) H/O: hysterectomy Social History (Updated 03/12/21 @ 13:40 by RODERICK Corcoran) Smoking Status: Never smoker alcohol intake: never substance use type: does not use ROS Constitutional Constitutional: Reports other Details: falling recently ; Denies change in weight, daytime sleepiness or fatigue Eyes Eyes: Reports systems reviewed and no addt'l complaints, except as documented ENT HEENT: Reports dizziness and dysphagia; Denies bleeding gums or epistaxis Cardiovascular Cardiovascular: Reports systems reviewed and no addt'l complaints, except as documented Respiratory/Chest Respiratory/Chest: Reports dyspnea on exertion; Denies dyspnea, hemoptysis or shortness of breath at rest Gastrointestinal Gastrointestinal: Denies abdominal pain, coffee ground emesis, melena, nausea or rectal bleeding Genitourinary Genitourinary: Denies hematuria Musculoskeletal Musculoskeletal: Denies systems reviewed and no addt'l complaints, except as documented Neurologic Neurologic: Reports dizziness; Denies abnormal gait, abnormal speech, headache(s), loss of vision, numbness, paresthesias or syncope Physical Exam Const alert, oriented x3, no apparent distress and average body habitus HEENT normocephalic Face and Sinus: normal facial exam Eyes PERRL, EOMs intact bilaterally and conjunctivae normal Neck General: normal visual inspection Carotids: Negative for bruit Lymph Lymphatic: no lymphadenopathy noted Chest inspection of chest normal Resp normal respiratory effort Auscultation: clear to auscultation bilaterally Cardio Palpation: normal PMI Rate: tachycardic Rhythm: abnormal rhythm irregularly irregular and other Heart Sounds: S1 normal and S2 normal; Negative for click, gallop, murmur or rub GI normal to inspection, nondistended, normoactive bowel sounds Extremity Peripheral Pulses: Yes pulses 2+ throughout Neuro oriented x3, CN's II-XII intact bilaterally and moves all extremities Charges/Coding Visit Charges Office Visits / Consults: 13017 OP Consult L4 Objective Data Vital Signs: Vital Signs Temp Pulse Resp BP Pulse Ox 97.9 F 112 H 20 H 144/91 H 95 03/13/21 09:21 03/13/21 09:21 03/13/21 09:21 03/13/21 09:21 03/13/21 09:21 Oxygen Flow Rate (L/min) 2 Oxygen Delivery Method Room Air Weight: 167 lb 1.766 oz Body Mass Index (BMI) 30.7 Intake & Output: Intake and Output for Last 24 Hours 03/11/21 03/12/21 03/13/21 23:59 23:59 23:59 Intake Total 1561.25 / 1561.25 Balance 1561.25 / 1561.25 Lab / Micro Data Result Diagrams: 03/13/21 05:30 03/13/21 05:30 Labs: Laboratory Results - last 24 hr 03/12/21 14:27: Troponin I High Sens 14.4 03/13/21 05:30: WBC 7.5, RBC 4.01 L, Hgb 12.2, Hct 36.6 L, MCV 91.3, MCH 30.4, MCHC 33.3, RDW Std Deviation 40.6, RDW Coeff of Fish 12.1, Plt Count 196, MPV 10.5, Immature Gran % (Auto) 0.400, Neut % (Auto) 60.2, Lymph % (Auto) 23.3, [place] % (Auto) 14.1 H, Eos % (Auto) 1.2, Baso % (Auto) 0.8, Absolute Neuts (auto) 4.5, Absolute Lymphs (auto) 1.74, Nucleated RBC % 0 03/13/21 05:30: Sodium 140, Potassium 3.4 L, Chloride 108 H, Carbon Dioxide 25.0, Anion Gap 7, BUN 32 H, Creatinine 1.58 H, Estim Creat Clear Calc 20.00, Est GFR (MDRD) Af Amer 40 L, Est GFR (MDRD) Non-Af 33 L, BUN/Creatinine Ratio 20.3 H, Glucose 123 H, Calcium 8.6, TSH 2.99 Rhythm Strip Rhythm Strip: A-fib Rate: 90 Ectopy: None Cardiology Labs/Tests 03/13/21 05:30: WBC 7.5, RBC 4.01 L, Hgb 12.2, Hct 36.6 L, MCV 91.3, MCH 30.4, MCHC 33.3, Plt Count 196, MPV 10.5, Immature Gran % (Auto) 0.400, Neut % (Auto) 60.2, Lymph % (Auto) 23.3, [place] % (Auto) 14.1 H, Eos % (Auto) 1.2, Baso % (Auto) 0.8, Absolute Neuts (auto) 4.5, Nucleated RBC % 0 03/13/21 05:30: Sodium 140, Potassium 3.4 L, Chloride 108 H, Carbon Dioxide 25.0, Anion Gap 7, BUN 32 H, Creatinine 1.58 H, Est GFR (MDRD) Af Amer 40 L, Est GFR (MDRD) Non-Af 33 L, BUN/Creatinine Ratio 20.3 H, Glucose 123 H, Calcium 8.6 Rhythm: EKG: ECHO: 03/14/2021: The estimated ejection fraction is EF 55-60 %. Normal LV systolic function Stress Test: Cardiac Cath: PCI: CT Surgery: Holter monitor: EPS: PPM: CXR: Chest CT Scan: Radiography Diagnostic Testing: Radiology Impression Chest X-Ray 03/12/21 10:25 IMPRESSION: Normal portable chest. Electronically Signed: Jose Raul Cazares DO at 11:08 EDT Tel , Service support , Echocardiogram 03/12/21 13:08 Interpretation Summary The estimated ejection fraction is EF 55-60 %. Normal LV systolic function Ordering Physician: Warner Gold Referring Physician: ANILA CROCKER Performed By: Zee Garvey RDCS Documented by User: Dr. Peg Elaine MD 03/13/21 12:04 Assessment & Plan Assessment/Plan (1) New onset atrial fibrillation: (2) Hypertension: (3) High cholesterol: (4) Fall: (5) Chronic renal insufficiency: QUALIFIERS: Chronic kidney disease stage: stage 4 (severe) Qualified Code(s): N18.4 - Chronic kidney disease, stage 4 (severe) HPI Consult Data Date of Consult: 03/13/21 [facility] Medical History (Updated 03/13/21 @ 11:11 by Maricruz CARLISLE, PA) H/O malignant melanoma of skin High cholesterol Hypertension Migraine New onset atrial fibrillation Skin cancer Home Medications diltiazem HCl 180 mg PO DAILY 03/12/21 [History Last Taken Unknown] ergocalciferol (vitamin D2) 1,250 unit PO QWEEK 03/12/21 [History Last Taken Unknown] labetalol 200 mg PO DAILY 03/12/21 [History Last Taken Unknown] lisinopril 20 mg PO DAILY 03/12/21 [History Last Taken Unknown] pravastatin 40 mg PO DAILY 03/12/21 [History Last Taken Unknown] triamterene-hydrochlorothiazid 1 tab PO DAILY 03/12/21 [History Last Taken Unknown] Allergy/AdvReac Type Severity Reaction Status Date / Time No Known Allergies Allergy Verified 03/12/21 08:50 Family History (Updated 03/12/21 @ 13:38 by Marlene Linn NP-C) Brother Diabetes Sister Hypertension Mother Hypertension Surgical History (Updated 03/12/21 @ 13:40 by RODERICK Corcoran) H/O: hysterectomy Social History (Updated 03/12/21 @ 13:40 by RODERICK Corcoran) Smoking Status: Never smoker alcohol intake: never substance use type: does not use Lab / Micro Data Result Diagrams: 03/13/21 05:30 03/13/21 05:30
--- NOTE | 2021-03-13 11:15 | CASEMGMT ---
RN CM Face to Face with patient for initial transition planning/care coordination assessment. RN CM introduced self and role at [facility]. Patient lying in bed, alert and oriented, son and DIL at bedside. Patient willing to participate in assessment and is able to answer all questions appropriately. Care providers, pharmacy, and demographics verified. Patient wishes to discharge home with possible HHC vs Outpt therapy pending progress with therapy. Patient provided list of HHC and DME agencies. Patient states she has no further needs or concerns at this time. CM to follow for discharge planning needs that may arise. PCP: Benny Specialists: Robert felt finisher [facility]: yes Living Will/HPOA: yes, Stephanie Irene Niece LNOK: son, niece Living Arrangements: Patient lives alone in a single story home with no steps to enter. Patient states she is independent at home. Transportation: self/family/neighbor DME/HHC: Patient states she has cane at home. Will monitor for walker. No previous HHC or SNF. Will monitor progress with therapy for HHC vs Outpt therapy. Disposition Plan: Patient to discharge home with follow-up plans in place. Monitor for HHC vs Outpt PT. Zo JOHN, RN, CM
--- NOTE | 2021-03-13 13:21 | PCM.PROGNOTE ---
Documented by User: RODERICK Corcoran 03/13/21 13:30 Subjective Subjective Patient seen and examined. Patient states that she is feeling better however she continues to get dizzy when she bends over and then stands up. Patient informed she will be evaluated by cardiology per her request. Patient states that she has no other complaints at this time. Objective Data Objective Data Vital Signs: Vital Signs Temp Pulse Resp BP Pulse Ox 98.2 F 84 18 123/82 H 99 03/13/21 12:07 03/13/21 12:07 03/13/21 12:07 03/13/21 12:07 03/13/21 12:07 Oxygen Flow Rate (L/min) 2 Oxygen Delivery Method Room Air Weight: 167 lb 1.766 oz Body Mass Index (BMI) 30.7 Intake & Output: Intake and Output for Last 24 Hours 03/11/21 03/12/21 03/13/21 23:59 23:59 23:59 Intake Total 2181.25 / 2181.25 Balance 2181.25 / 2181.25 Medical Nutrition Assessment Dietitian: Nutrition Therapy Diagnosis Start: 03/12/21 16:09 Freq: Status: Active Protocol: Document 03/12/21 16:17 RMA (Rec: 03/12/21 16:17 RMA [id number]) Nutrition Malnutrition Evidence of Malnutrition Exists No Intake Problem Inadequate Oral Intake Etiology likely r/t weakness and feeling unwell Signs/Symptoms as evidenced by pt consuming 25% of lunch meal. Status Active Problem Recommendation Dietitian Recommendations/Changes Continue cardiac/heart healthy diet. Oral nutrition supplement if intake does not improves at meals. Lab / Micro Data Result Diagrams: 03/13/21 05:30 03/13/21 05:30 Labs: Laboratory Results - last 24 hr 03/12/21 14:27: Troponin I High Sens 14.4 03/13/21 05:30: WBC 7.5, RBC 4.01 L, Hgb 12.2, Hct 36.6 L, MCV 91.3, MCH 30.4, MCHC 33.3, RDW Std Deviation 40.6, RDW Coeff of Fish 12.1, Plt Count 196, MPV 10.5, Immature Gran % (Auto) 0.400, Neut % (Auto) 60.2, Lymph % (Auto) 23.3, [place] % (Auto) 14.1 H, Eos % (Auto) 1.2, Baso % (Auto) 0.8, Absolute Neuts (auto) 4.5, Absolute Lymphs (auto) 1.74, Nucleated RBC % 0 03/13/21 05:30: Sodium 140, Potassium 3.4 L, Chloride 108 H, Carbon Dioxide 25.0, Anion Gap 7, BUN 32 H, Creatinine 1.58 H, Estim Creat Clear Calc 20.00, Est GFR (MDRD) Af Amer 40 L, Est GFR (MDRD) Non-Af 33 L, BUN/Creatinine Ratio 20.3 H, Glucose 123 H, Calcium 8.6, TSH 2.99 Radiography Diagnostic Testing: Radiology Impression Echocardiogram 03/12/21 13:08 Interpretation Summary The estimated ejection fraction is EF 55-60 %. Normal LV systolic function Ordering Physician: Warner Gold Referring Physician: ANILA CROCKER Performed By: Zee Garvey RDCS Rhythm Strip Rhythm Strip: A-fib Rate: 90 Ectopy: None Physical Exam Const alert and oriented x3 General Appearance: cooperative HEENT normocephalic and head/scalp atraumatic Eyes conjunctivae normal and no scleral icterus Neck supple and no JVD General: trachea midline Resp normal respiratory effort, normal air movement and clear to auscultation bilaterally Cardio regular rate, regular rhythm, S1 normal heart sound and S2 normal heart sound Peripheral Pulses: pulses 2+ throughout GI normal to inspection, nondistended, normoactive bowel sounds, soft to palpation and non-tender Extremity normal capillary refill and no clubbing, cyanosis or edema General Extremity: no tenderness to palpation of joints or extremities Skin General Skin Exam: no breakdown and turgor normal Lesions: no lesions Rashes: no rashes Neuro no focal motor deficits and no sensory deficits noted Speech: speech normal Motor Exam: strength 5/5 throughout; Negative for general weakness Psych thought process normal, cooperative and affect normal Appearance: appropriate Assessment & Plan Assessment/Plan (1) New onset atrial fibrillation: PLAN: 1. Atrial fibrillation -EKG as needed with new symptom onset or arrhythmia -Will obtain CBC and BMP daily -Echo shows EF of 55 to 60%, normal LV function -Vital signs per protocol -Orthostatic vital signs ordered due to patient stating that she notices she is also dizzy when she bends over and then stands up 2. Episodic lightheadedness with multiple falls -Likely secondary to above -PT and OT to treat -Patient states she landed on her back and knee, no obvious injuries noted. Brain CT, knee x-ray and chest x-ray all negative for acute findings. 3. Chronic kidney disease stage IV -Upon review of labs from 12/2020 patient has stage IV chronic kidney disease baseline GFR 29 -Patient's current CMP consistent with previous results -BMP daily, trend BUN, creatinine, GFR 4. Hypertension -Continue lisinopril, triamterene/hydrochlorothiazide and Cardizem. -Vital signs per protocol, trend BP and heart rate -Per cardiology patient labetalol will be DC'd and she will be initiated on metoprolol as well as low-dose Eliquis. -Per cardiology patient will be evaluated outpatient for cardioversion after appropriate anticoagulation. 5. Hyperlipidemia -Continue pravastatin DVT prophylaxis-subcu heparin This patient was seen by DERICK CorcoranC under the supervision of Dr. Gold. Documented by User: Dr. Warner Gold MD 03/13/21 14:15 Objective Data Lab / Micro Data Result Diagrams: 03/13/21 05:30 03/13/21 05:30 Charges/Coding Addendum Addendum: Dr. Gold: I personally reviewed the chart and examined the patient, and agree with the above findings. 85-year-old female presented to the hospital due to weakness and multiple falls over the last 24 hours. She states that she has a history of palpitations but is never been told that she has A. fib, which presented to the ER she was found to be in A. fib and did have an episode of tachycardia up to 122. Per the ED physician this was when she was moving around, she was extremely dizzy when I tried to get her up to do orthostatic blood pressures. We will try to obtain [facility] information about her previous cardiac work-ups, she is unsure if she has had an echo before. We will continue with her home blood pressure medications including labetalol and Cardizem and will obtain a echo. If necessary can increase the dose of her Cardizem. We will continue with IV fluids and check a TSH as well. According to her PCP through the ED physician her creatinine is at baseline at 1.8. Her [id number] is a 4 based on age and gender as well as her history of hypertension, she would benefit from a blood thinner though she seems little bit hesitant. We will discuss this further prior to discharge. 03/13/2021: Doing well today, has not had any lightheadedness or dizziness except for when she bent over to pick something up that she had dropped. She does have orthostasis and was continued on her IV fluids. And she also had an episode of significant tachycardia when she got up to ambulate to the bathroom therefore cardiology was consulted and would like to make some medication adjustments for her blood pressure and her heart rate. With her A. fib, she has an increased stroke risk and has agreed to be on Eliquis. Echo was unremarkable. Visit Charges Inpatient E&M: [id number] Subs Hosp L2
[2021-03-13] MEDS: APIXABAN 2.5 MG TABLET PO (21:18)
[2021-03-13] MEDS: Metoprolol Tartrate 25 MG Tablet PO (21:18)
[2021-03-14] VITALS (7 sets, daily range): BP systolic 127–141; BP diastolic 76–80; PULSE 67–76; RESP 18; TEMP 36.7–37.1; O2SAT 98–99
[2021-03-14] MEDS: 0.9% Normal Saline 1,000 ML 75 ML IV (02:29)
[2021-03-14 06:11] LABS: Absolute Neutrophil Count 4.4 X10^3/uL (2.0-7.7); Basophil# 0.06 X10^3/uL; Basophil% 0.8 % (0-1); Eosinophil# 0.15 X10^3/uL; Hematocrit 35.2 % (37-47); Hemoglobin 11.4 g/dL (12.0-15.0); Lymphocyte % 23.1 % (19-41); Mean Corp Hgb Conc 32.4 g/dL (32-36); Mean Corpuscular Hgb 29.8 pg (27.0-32.0); Mean Corpuscular Volume 92.1 fL (81-99); Mean Platelet Vol. 11.4 fl (6.2-12.0); Monocyte% 13.6 % (0-10); NRBC Flagged by Analyzer 0 % (0-5); Neutrophil # 4.42 X10^3/uL (2.7-7.7); Neutrophil % 60.1 % (47-70); Platelet Count 201 K/mm3 (150-450); RBC Distribution Width CV 12.2 % (11.6-14.6); RBC Distribution Width SD 40.9 fl (35.1-43.9); Red Blood Count 3.82 M/mm3 (4.2-5.4); White Blood Count 7.4 K/mm3 (4.4-11.0)
[2021-03-14 06:59] LABS: Anion Gap 5 (5-15); BUN 28 mg/dL (7-18); BUN/Creat Ratio 19.4 RATIO (10-20); Calcium,Total 8.4 mg/dL (8.5-10.1); Chloride 112 mmol/L (98-107); Creatinine, Serum 1.44 mg/dL (0.55-1.02); EST Glomerular Filtration Rate 37 mL/min (>60); Est Glom Filt Rate - Afr Amer 45 mL/min (>60); Estimated Creatinine Clearance 21.95 ml/min; Glucose 112 mg/dL (74-106); Potassium 3.7 mmol/L (3.5-5.1); Sodium Level 140 mmol/L (136-145)
[2021-03-14] MEDS: APIXABAN 2.5 MG TABLET PO (09:04)
[2021-03-14] MEDS: Pravastatin 40 MG Tablet PO (09:04)
[2021-03-14] MEDS: Metoprolol Tartrate 25 MG Tablet PO (09:05)
[2021-03-14] MEDS: dilTIAZem CD 180 MG Capsule PO (09:05)
[2021-03-14] MEDS: Lisinopril 20 MG Tablet PO (09:05)
[2021-03-14] MEDS: Triamterene 75MG/Hctz 50MG Tablet 1 TABLET PO (09:05)
--- NOTE | 2021-03-14 09:57 | PN.CARD_ITS ---
Subjective Subjective Mild symptoms of lightheadedness no symptoms of chest pain Objective Data Vital Signs: Vital Signs Temp Pulse Resp BP Pulse Ox 98.0 F 76 18 141/80 H 98 03/14/21 09:00 03/14/21 09:05 03/14/21 09:00 03/14/21 09:05 03/14/21 09:00 Oxygen Flow Rate (L/min) 2 Oxygen Delivery Method Room Air Weight: 167 lb 1.766 oz Body Mass Index (BMI) 30.7 Intake & Output: Intake and Output for Last 24 Hours 03/12/21 03/13/21 03/14/21 23:59 23:59 23:59 Intake Total 3882.50 / 3882.50 1000 / 1000 Balance 3882.50 / 3882.50 1000 / 1000 Lab / Micro Data Result Diagrams: 03/14/21 05:36 03/14/21 05:36 Labs: Laboratory Results - last 24 hr 03/14/21 05:36: WBC 7.4, RBC 3.82 L, Hgb 11.4 L, Hct 35.2 L, MCV 92.1, MCH 29.8, MCHC 32.4, RDW Std Deviation 40.9, RDW Coeff of Fish 12.2, Plt Count 201, MPV 11.4, Immature Gran % (Auto) 0.400, Neut % (Auto) 60.1, Lymph % (Auto) 23.1, [place] % (Auto) 13.6 H, Eos % (Auto) 2.0, Baso % (Auto) 0.8, Absolute Neuts (auto) 4.4, Absolute Lymphs (auto) 1.70, Nucleated RBC % 0 03/14/21 05:36: Sodium 140, Potassium 3.7, Chloride 112 H, Carbon Dioxide 23.0, Anion Gap 5, BUN 28 H, Creatinine 1.44 H, Estim Creat Clear Calc 21.95, Est GFR (MDRD) Af Amer 45 L, Est GFR (MDRD) Non-Af 37 L, BUN/Creatinine Ratio 19.4, Glucose 112 H, Calcium 8.4 L Rhythm Strip Rhythm Strip: A-fib Rate: 90 Ectopy: None Cardiology Labs/Tests 03/14/21 05:36: WBC 7.4, RBC 3.82 L, Hgb 11.4 L, Hct 35.2 L, MCV 92.1, MCH 29.8, MCHC 32.4, Plt Count 201, MPV 11.4, Immature Gran % (Auto) 0.400, Neut % (Auto) 60.1, Lymph % (Auto) 23.1, [place] % (Auto) 13.6 H, Eos % (Auto) 2.0, Baso % (Auto) 0.8, Absolute Neuts (auto) 4.4, Nucleated RBC % 0 03/14/21 05:36: Sodium 140, Potassium 3.7, Chloride 112 H, Carbon Dioxide 23.0, Anion Gap 5, BUN 28 H, Creatinine 1.44 H, Est GFR (MDRD) Af Amer 45 L, Est GFR (MDRD) Non-Af 37 L, BUN/Creatinine Ratio 19.4, Glucose 112 H, Calcium 8.4 L Rhythm: EKG: Atrial fibrillation with controlled ventricular rate Physical Exam Narrative Patient seen and evaluated at bedside The real property evaluator showed atrial fibrillation with controlled ventricular rate on the current treatment Cardiovascular examination; S1-S2 is irregular, there is no murmur no systolic or diastolic murmur. Chest examination; Normal bilateral air entry Examination of the abdomen is soft Examination lower extremity no clubbing no cyanosis no extremity edema Examination of central nervous system no focal neurological deficit noted. Assessment & Plan Assessment/Plan (1) New onset atrial fibrillation: PLAN: Patient is 85-year-old female who was admitted with palpitation, lightheadedness and dizziness and recurrent fall Noted to have new onset atrial fibrillation/paroxysmal A. fib with rapid ventricular rate Started on treatment for rate control with metoprolol and Cardizem are ventricular rate is better controlled now Also started on anticoagulation renal dose due to her chronic renal insufficiency Eliquis is dosage is 2.5 mg twice a day Plan and recommendations; 1. I reviewed cardiac telemetry and the current management and discussed with the medical team We will continue on rate control with Cardizem and metoprolol 2. We will continue on anticoagulation with Eliquis due to the high risk of stroke in this case with CHADS-Vasc more than 4 3. Patient is at risk of fall I will defer to the medical team for recommendation 4. Patient will follow up with the commissioner conservation of resources Dr. Muse with the plan of DCCV?4 to 6-week on anticoagulation. Patient can be discharged home from the cardiac standpoint. (2) Hypertension: (3) High cholesterol: (4) Episodic lightheadedness: (5) Fall: (6) Chronic renal insufficiency: QUALIFIERS: Chronic kidney disease stage: stage 4 (severe) Qualified Code(s): N18.4 - Chronic kidney disease, stage 4 (severe)
--- NOTE | 2021-03-14 10:11 | DCINST_ITS ---
Documented by User: RODERICK Corcoran 03/14/21 10:15 Discharge Instructions Diet Discharge Diet: Low fat / Low cholesterol and 2000 mg Sodium Diet Activity Discharge Activity: Return to Normal Activity Dressing / Incision Call your doctor if you observe: Shortness of breath, Fainting spells, Swelling in the ankles and Chest pain Follow Up Care Please Follow Up With: Arnel Muse MD When: 1-2 weeks Test Results: Test results from this visit will be discussed in further detail at your follow-up appointment, if applicable. Discharge Plan Admission Admit Date/Time: 03/12/21 12:18 Primary Reason for Your Visit: New onset AFIB Attending Provider: Warner Gold Primary Care Provider: Phi Zapata Consulting Providers: Peg Elaine Instructions Patient Instructions: Your Heart's Electrical System, What Is Atrial Flutter/Atrial Fibrillation? Additional Instructions / Restrictions: Patient Problems: Altered Health Status related to Hospitalization Patient Goals: *Optimal Level of Health *Keep Appointments *Medication Compliance *Remain Safe Discharge Orders/Prescriptions Prescriptions: New metoprolol tartrate 25 mg Tablet 25 mg PO BID 30 Days Qty: 60 RF: 0 Eliquis 2.5 mg Tablet 2.5 mg PO BID 30 Days Qty: 60 RF: 0 Continued pravastatin 40 mg tablet 40 mg PO DAILY RF: 0 diltiazem HCl 180 mg capsule,extended release 24hr 180 mg PO DAILY RF: 0 lisinopril 20 mg tablet 20 mg PO DAILY RF: 0 triamterene-hydrochlorothiazid 75-50 mg tablet 1 tab PO DAILY RF: 0 ergocalciferol (vitamin D2) 1,250 mcg (50,000 unit) capsule 1,250 unit PO QWEEK RF: 0 Discontinued labetalol 200 mg tablet 200 mg PO DAILY RF: 0 Other Ambulatory Orders: Knee High Terrell Hose (Routine) Location: None Selected Ordered By: Marlene Linn Referrals / Follow Up: Phi Zapata MD [Primary Care Provider] - Maricruz Casas PA [PHYSICIAN AUDIO DIRECTOR] - 04/03/21 9:00 am Disposition Disposition (needs filled in before D/C Order can be placed): Home Health Service Documented by User: Dr. Warner Gold MD 03/14/21 12:18 Discharge Plan Admission Admit Date/Time: 03/12/21 12:18 Primary Reason for Your Visit: New onset AFIB Attending Provider: Warner Gold Primary Care Provider: Phi Zapata Consulting Providers: Peg Elaine Instructions Patient Instructions: Your Heart's Electrical System, What Is Atrial Flutter/Atrial Fibrillation? Additional Instructions / Restrictions: Patient Problems: Altered Health Status related to Hospitalization Patient Goals: *Optimal Level of Health *Keep Appointments *Medication Compliance *Remain Safe Discharge Orders/Prescriptions Prescriptions: New metoprolol tartrate 25 mg Tablet 25 mg PO BID 30 Days Qty: 60 RF: 0 Eliquis 2.5 mg Tablet 2.5 mg PO BID 30 Days Qty: 60 RF: 0 Continued pravastatin 40 mg tablet 40 mg PO DAILY RF: 0 diltiazem HCl 180 mg capsule,extended release 24hr 180 mg PO DAILY RF: 0 lisinopril 20 mg tablet 20 mg PO DAILY RF: 0 triamterene-hydrochlorothiazid 75-50 mg tablet 1 tab PO DAILY RF: 0 ergocalciferol (vitamin D2) 1,250 mcg (50,000 unit) capsule 1,250 unit PO QWEEK RF: 0 Discontinued labetalol 200 mg tablet 200 mg PO DAILY RF: 0 Other Ambulatory Orders: Knee High Terrell Krishnamurthy (Routine) Location: None Selected Ordered By: Marlene Linn Referrals / Follow Up: Phi Zapata MD [Primary Care Provider] - Maricruz Casas PA [PHYSICIAN AUDIO DIRECTOR] - 04/03/21 9:00 am Disposition Disposition (needs filled in before D/C Order can be placed): Home Health Service
--- NOTE | 2021-03-14 10:11 | CASEMGMT ---
Addendum entered by Marlyn Trotter 03/14/21 11:51: FREDERICK THAPA back into pt room. Pt has chosen [facility]. [facility] 2. [facility] 3. [facility]. TC to [facility]. Spoke to Toño who accepts referral. Pt is aware that the referral was accepted and Darcie will be in touch with her. Referral faxed at this time. Original Note: FREDERICK THAPA met pt in room. Pt edwin and his present. Discussed therapy recommending C at ne. Patient was provided a list of [facility] providers including quality and resource use data and consistent with the patient?s preferred geographic region, medical needs, and insurance network. Pt would like to review list. FREDERICK THAPA to check back with pt.
--- NOTE | 2021-03-14 14:04 | DS.PCM_ITS ---
Providers Date of Admission: 03/12/21 Primary Care Physician: Dr. Phi Zapata MD Consultations 03/13/21 09:33 Consult: Cardiology Routine Consulting Provider: Peg Elaine Reason for Consult: Afib, palpitations, dizziness EMERGENT Consult: No MD Notified: Yes Date Notified: 03/13/21 Time Notified: 09:33 Method of Notification: Text Reason For Visit: AFIB WITH WEAKNESS Diagnosis Discharge Diagnosis (1) New onset atrial fibrillation: Status: Acute Code(s): I48.91 - Unspecified atrial fibrillation (2) Hypertension: Status: Chronic Code(s): I10 - Essential (primary) hypertension (3) High cholesterol: Status: Acute Code(s): E78.00 - Pure hypercholesterolemia, unspecified (4) Episodic lightheadedness: Status: Acute Code(s): R42 - Dizziness and giddiness (5) Fall: Status: Acute Code(s): W19.XXXA - Unspecified fall, initial encounter (6) Chronic renal insufficiency: Status: Chronic Code(s): N18.9 - Chronic kidney disease, unspecified Qualifiers: Chronic kidney disease stage: stage 4 (severe) Qualified Code(s): N18.4 - Chronic kidney disease, stage 4 (severe) Plan: 1. Atrial fibrillation -Echo shows EF of 55 to 60%, normal LV function -Vital signs per protocol -Orthostatic vital signs positive discussed with patient to sit on edge of bed for a few moments prior to standing up to decrease dizziness 2. Episodic lightheadedness with multiple falls -Likely secondary to above -PT and OT to treat -Patient states she landed on her back and knee, no obvious injuries noted. Brain CT, knee x-ray and chest x-ray all negative for acute findings. 3. Chronic kidney disease stage IV -Upon review of labs from 12/2020 patient has stage IV chronic kidney disease baseline GFR 29 -Patient's current CMP consistent with previous results -BMP daily, trend BUN, creatinine, GFR 4. Hypertension -Continue lisinopril, triamterene/hydrochlorothiazide and Cardizem. -Vital signs per protocol, trend BP and heart rate -Per cardiology patient labetalol will be DC'd and she will be initiated on metoprolol as well as low-dose Eliquis. -Per cardiology patient will be evaluated outpatient for cardioversion after appropriate anticoagulation. 5. Hyperlipidemia -Continue pravastatin DVT prophylaxis-subcu heparin This patient was seen by RODERICK Corcoran under the supervision of Dr. Gold. Medications at Discharge Home Medications diltiazem HCl 180 mg PO DAILY 03/12/21 ergocalciferol (vitamin D2) 1,250 unit PO QWEEK 03/12/21 lisinopril 20 mg PO DAILY 03/12/21 pravastatin 40 mg PO DAILY 03/12/21 triamterene-hydrochlorothiazid 1 tab PO DAILY 03/12/21 apixaban [Eliquis] 2.5 mg PO BID 30 Days #60 tab 03/14/21 metoprolol tartrate 25 mg PO BID 30 Days #60 tab 03/14/21 Hospital Course Operations None Procedures 2-D Echocardiogram and EKG Summary of Care Provided Minutes Spent on Discharge: 35 Physical Exam Const alert, oriented x3, no apparent distress and average body habitus General Appearance: cooperative HEENT normocephalic and head/scalp atraumatic Eyes conjunctivae normal and no scleral icterus Neck supple and no JVD General: normal visual inspection and trachea midline Carotids: bruit Chest inspection of chest normal Resp normal respiratory effort, normal air movement and clear to auscultation bilaterally Auscultation: clear to auscultation bilaterally Cardio regular rate, regular rhythm, S1 normal heart sound and S2 normal heart sound Palpation: normal PMI Rate: Negative for tachycardic Rhythm: abnormal rhythm irregularly irregular and other Heart Sounds: S1 normal and S2 normal; Negative for click Peripheral Pulses: pulses 2+ throughout GI normal to inspection, nondistended, normoactive bowel sounds, soft to palpation and non-tender Extremity normal capillary refill and no clubbing, cyanosis or edema General Extremity: no tenderness to palpation of joints or extremities Right Lower Extremity: knee joint inspection (Normal, no deformity noted), palpation (Tender), ROM (Full range of motion) and neurovascular exam (Intact) Skin skin turgor normal General Skin Exam: no breakdown and turgor normal Lesions: no lesions Rashes: no rashes Neuro oriented x3, CN's II-XII intact bilaterally, moves all extremities, no focal motor deficits and no sensory deficits noted Speech: speech normal Motor Exam: strength 5/5 throughout Psych thought process normal, cooperative and affect normal Appearance: appropriate Medical Records Data Medical Nutrition Assessment Dietitian: Nutrition Therapy Diagnosis Start: 03/12/21 16:09 Freq: Status: Active Protocol: Document 03/12/21 16:17 RMA (Rec: 03/12/21 16:17 RMA [id number]) Nutrition Malnutrition Evidence of Malnutrition Exists No Intake Problem Inadequate Oral Intake Etiology likely r/t weakness and feeling unwell Signs/Symptoms as evidenced by pt consuming 25% of lunch meal. Status Active Problem Recommendation Dietitian Recommendations/Changes Continue cardiac/heart healthy diet. Oral nutrition supplement if intake does not improves at meals. Weight / BMI Weight Weight: 167 lb 1.766 oz Body Mass Index (BMI) 30.7 ABG / Lab / Microbiology Data Result Diagrams: 03/14/21 05:36 03/14/21 05:36 Laboratory: Laboratory Results - last 24 hr 03/14/21 05:36: WBC 7.4, RBC 3.82 L, Hgb 11.4 L, Hct 35.2 L, MCV 92.1, MCH 29.8, MCHC 32.4, RDW Std Deviation 40.9, RDW Coeff of Fish 12.2, Plt Count 201, MPV 11.4, Immature Gran % (Auto) 0.400, Neut % (Auto) 60.1, Lymph % (Auto) 23.1, [place] % (Auto) 13.6 H, Eos % (Auto) 2.0, Baso % (Auto) 0.8, Absolute Neuts (auto) 4.4, Absolute Lymphs (auto) 1.70, Nucleated RBC % 0 03/14/21 05:36: Sodium 140, Potassium 3.7, Chloride 112 H, Carbon Dioxide 23.0, Anion Gap 5, BUN 28 H, Creatinine 1.44 H, Estim Creat Clear Calc 21.95, Est GFR (MDRD) Af Amer 45 L, Est GFR (MDRD) Non-Af 37 L, BUN/Creatinine Ratio 19.4, Glucose 112 H, Calcium 8.4 L D/C Instructions Discharge Diet: Low fat / Low cholesterol and 2000 mg Sodium Diet Call your doctor if you observe: Shortness of breath, Fainting spells, Swelling in the ankles and Chest pain Please Follow Up With: Arnel Muse MD When: 1-2 weeks Meaningful Use Info Meaningful Use Diagnoses (Choose all that apply): None applicable Discharge Plan Admission Admit Date/Time: 03/12/21 12:18 Primary Reason for Your Visit: New onset AFIB Attending Provider: Warner Gold Primary Care Provider: Phi Zapata Consulting Providers: Peg Elaine Instructions Patient Instructions: Your Heart's Electrical System, What Is Atrial Flutter/Atrial Fibrillation? Additional Instructions / Restrictions: Patient Problems: Altered Health Status related to Hospitalization Patient Goals: *Optimal Level of Health *Keep Appointments *Medication Compliance *Remain Safe Discharge Orders/Prescriptions Prescriptions: New metoprolol tartrate 25 mg Tablet 25 mg PO BID 30 Days Qty: 60 RF: 0 Eliquis 2.5 mg Tablet 2.5 mg PO BID 30 Days Qty: 60 RF: 0 Continued pravastatin 40 mg tablet 40 mg PO DAILY RF: 0 diltiazem HCl 180 mg capsule,extended release 24hr 180 mg PO DAILY RF: 0 lisinopril 20 mg tablet 20 mg PO DAILY RF: 0 triamterene-hydrochlorothiazid 75-50 mg tablet 1 tab PO DAILY RF: 0 ergocalciferol (vitamin D2) 1,250 mcg (50,000 unit) capsule 1,250 unit PO QWEEK RF: 0 Discontinued labetalol 200 mg tablet 200 mg PO DAILY RF: 0 Other Ambulatory Orders: Fahad Krishnamurthy (Routine) Location: None Selected Ordered By: Marlene Linn Referrals / Follow Up: Phi Zapata MD [Primary Care Provider] - Maricruz Casas PA [PHYSICIAN HEALTHCARE CUSTOMER SERVICE] - 04/03/21 9:00 am Disposition Disposition (needs filled in before D/C Order can be placed): Home Health Service
--- NOTE | 2021-03-16 15:02 | CASEMGMT ---
FREDERICK THAPA Discharge Follow-up Phone Call: MINNIE: Jenifer Strata: 3 Call Date: 03/16/21 Discharge Date: 03/14/21 Time of Call: 1455 Duration: 5 min Admitting Diagnosis: Afib with weakness FREDERICK THAPA completed follow-up phone call after recent hospitalization. Patient states she thinks she is doing pretty darn good. Patient states she is still weak. Patient had no questions regarding discharge instructions. Patient has follow-up appt scheduled. Patient was able to fill prescriptions without any issues. Patient states that C had call but she miss it and didn't get the number. C was setup with [facility] and number provided to patient. Patient had no further questions or concerns at this time.
== END 2021-03-14 14:05 | disposition home health service (06) | DRG 309 ==
LOC: ED 11:22 → PCU 12:31
PROVIDERS: Nurse Practitioner Family; Admitting Provider Family Medicine; Emergency Provider Emergency Medicine; PCP Family Medicine; Visit Provider Family Medicine
DX: I48.0 Paroxysmal atrial fibrillation (principal); N18.4 Chronic kidney disease, stage 4 (severe); I12.9 Hypertensive chronic kidney disease with stage 1 through stage 4 chronic kidney disease, or unspecified chronic kidney disease; R29.6 Repeated falls; E78.5 Hyperlipidemia, unspecified; Z68.30 Body mass index [BMI] 30.0-30.9, adult; Z85.820 Personal history of malignant melanoma of skin
CPT/HCPCS: 36415; 70450; 71045; 73564; 80048; 81001; 84443; 84484; 85025; 93005; 93306; 97110; 97162; 97166; 97530; 99285; J7030; A4216

== ENCOUNTER → 2023-09-08 | Outpatient (CLI) | payer MEDICARE, OTHER, SELFPAY ==
[2023-09-08 16:26] LABS: Absolute Lymphocyte Count 1.73 X10^3/uL (0.83-4.51); Absolute Neutrophil Count 5.4 X10^3/uL (2.0-7.7); Basophil# 0.07 X10^3/uL; Basophil% 0.9 % (0-1); Eosinophil# 0.05 X10^3/uL; Eosinophils% 0.6 % (0-5); Hematocrit 46.2 % (37-47); Lymphocyte # 1.73 X10^3/ul (0.83-4.51); Lymphocyte % 21.7 % (19-41); Mean Corp Hgb Conc 32.5 g/dL (32-36); Mean Corpuscular Hgb 29.2 pg (27.0-32.0); Mean Corpuscular Volume 89.9 fL (81-99); Mean Platelet Vol. 11.3 fl (6.2-12.0); Monocyte# 0.74 X10^3/uL; Monocyte% 9.3 % (0-10); NRBC Flagged by Analyzer 0 % (0-5); Neutrophil # 5.35 X10^3/uL (2.7-7.7); Neutrophil % 67.2 % (47-70); Platelet Count 255 K/mm3 (150-450); RBC Distribution Width CV 12.9 % (11.6-14.6); RBC Distribution Width SD 42.6 fl (35.1-43.9); Red Blood Count 5.14 M/mm3 (4.2-5.4)
[2023-09-08 17:04] LABS: ALB/GLOB Ratio 1.1 RATIO (0.9-2.4); AST(SGOT) 15 U/L (15-37); Alanine Aminotransfer ALT/SGPT 23 U/L (13-56); Albumin, Serum 4.1 g/dL (3.2-5.0); Alkaline Phosphatase 60 U/L (45-117); Anion Gap 5 (5-15); BUN 39 mg/dL (7-18); BUN/Creat Ratio 20.4 RATIO (10-20); Calcium,Total 9.6 mg/dL (8.5-10.1); Chloride 105 mmol/L (98-107); Creatinine, Serum 1.91 mg/dL (0.55-1.02); EST Glomerular Filtration Rate 26 mL/min (>60); Est Glom Filt Rate - Afr Amer 32 mL/min (>60); Globulin 3.8 g/dL (2.2-4.2); Glucose 173 mg/dL (74-106); Potassium 3.4 mmol/L (3.5-5.1); Protein, Total 7.9 g/dL (6.4-8.2); Sodium Level 136 mmol/L (136-145); Thyroid Stim Hormone (TSH) 2.83 uIU/mL (0.358-3.74)
== END | disposition home or self-care (01) ==
LOC: LAB 14:16
PROVIDERS: PCP Family Medicine; Referring Provider Internal Medicine Cardiovascular Disease; Visit Provider Internal Medicine Cardiovascular Disease
DX: I10 Essential (primary) hypertension (principal); I48.91 Unspecified atrial fibrillation
CPT/HCPCS: 36415; 80053; 84443; 85025

== ENCOUNTER → 2023-10-11 | Outpatient (CLI) | payer MEDICARE, OTHER, SELFPAY ==
--- NOTE | 2023-10-11 10:05 | ECHOD_ITS ---
Reason For Study: ESSENTIAL PRIMARY HTN Procedure This was a 2D Doppler, Color Flow transthoracic echocardiogram. Exam performed in department. Left Ventricle Normal LV size. Mild concentric left ventricular hypertrophy. The left ventricular ejection fraction is 65 %. Stage 2 diastolic dysfunction. Right Ventricle Normal right ventricle. Atria There is moderate biatrial dilatation. Mitral Valve Moderate mitral annular calcification. Mild-Moderate (1-2+) mitral valve insufficiency. Tricuspid Valve Moderate (2+) tricuspid valve insufficiency. Right ventricular systolic pressure estimated to be 54 mmHg. Aortic Valve Trisinus/trileaflet aortic valve. Pulmonic Valve The pulmonic valve is not well visualized. Mild-Moderate (1-2+) pulmonic valve insufficiency. Great Vessels Normal sized aortic root. Pericardium/Pleural No pericardial effusion. MMode/2D Measurements & Calculations LVIDd: 3.9 cm IVSd: 1.2 cm Ao root diam: 3.0 cm LVIDs: 2.4 cm LVPWd: 1.2 cm RVDd: 2.8 cm FS: 38.9 % LAV(MOD-bp): 71.4 ml LVAd ap4: 17.3 cm2 SV(MOD-sp4): 25.4 ml LAV(MOD-bp) Indexed: 41.8 ml/m2 LVLd ap4: 6.1 cm LAV(MOD-sp2): 71.0 ml EDV(MOD-sp4): 40.3 ml LAV(MOD-sp4): 72.8 ml EDV(sp4-el): 41.9 ml LVAs ap4: 10.0 cm2 LVLs ap4: 5.7 cm ESV(MOD-sp4): 14.9 ml ESV(sp4-el): 15.0 ml EF(MOD-sp4): 63.1 % EF(sp4-el): 64.2 % SV(sp4-el): 26.9 ml LA A4 area: 23.4 cm2 LA dimension(2D): 4.6 cm RA A4 area: 18.6 cm2 TAPSE: 1.5 cm Doppler Measurements & Calculations MV E max yovani: 152.0 cm/sec Lat Peak E' Yovani: 7.9 cm/sec Med Peak E' Yovani: 8.0 cm/sec E/E' lat: 19.3 E/E' med: 19.0 MV V2 max: 161.2 cm/sec Ao V2 max: 148.1 cm/sec LV V1 max: 96.4 cm/sec MV max P.4 mmHg Ao max P.8 mmHg LV V1 max P.7 mmHg MV V2 mean: 54.7 cm/sec Ao V2 mean: 94.3 cm/sec LV V1 mean P.0 mmHg MV mean P.0 mmHg Ao mean P.2 mmHg LV V1 mean: 65.9 cm/sec MV V2 VTI: 34.7 cm Ao V2 VTI: 31.9 cm LV V1 VTI: 21.1 cm AV (velocity ratio): 0.66 MR max yovani: 573.9 cm/sec PA V2 max: 86.4 cm/sec TR max yovani: 311.7 cm/sec MR max P.7 mmHg PA V2 mean: 61.6 cm/sec TR max P.9 mmHg MR mean yovani: 443.1 cm/sec MR mean P.6 mmHg MR VTI: 176.4 cm ECHO/Echo Complete Interpretation Summary Mild concentric left ventricular hypertrophy. The left ventricular ejection fraction is 65 %. Stage 2 diastolic dysfunction. There is moderate biatrial dilatation. Moderate mitral annular calcification. Mild-Moderate (1-2+) mitral valve insufficiency. Moderate (2+) tricuspid valve insufficiency. Right ventricular systolic pressure estimated to be 54 mmHg. Mild-Moderate (1-2+) pulmonic valve insufficiency. Ordering Physician: Abeba Coello Referring Physician: Phi Zapata Performed By: Mayra Patel, DEON, RVT
[2023-10-11 12:27] LABS: Anion Gap 6 (5-15); BUN 20 mg/dL (7-18); Calcium,Total 9.2 mg/dL (8.5-10.1); Chloride 109 mmol/L (98-107); Creatinine, Serum 1.33 mg/dL (0.55-1.02); EST Glomerular Filtration Rate 40 mL/min (>60); Est Glom Filt Rate - Afr Amer 49 mL/min (>60); Glucose 101 mg/dL (74-106); Potassium 3.4 mmol/L (3.5-5.1); Sodium Level 145 mmol/L (136-145)
[2023-10-11 14:04] LABS: BNP,B-Type NATRIURETIC PEPTIDE 320.6 pg/mL (0-100)
== END | disposition home or self-care (01) ==
PROVIDERS: Physician Assistant Medical; PCP Family Medicine; Referring Provider Internal Medicine Cardiovascular Disease; Visit Provider Internal Medicine Cardiovascular Disease
DX: I48.11 Longstanding persistent atrial fibrillation (principal); N18.4 Chronic kidney disease, stage 4 (severe); E78.00 Pure hypercholesterolemia, unspecified; I12.9 Hypertensive chronic kidney disease with stage 1 through stage 4 chronic kidney disease, or unspecified chronic kidney disease; R06.09 Other forms of dyspnea
CPT/HCPCS: 36415; 80048; 83880; 93225; 93226; 93306

== ENCOUNTER → 2023-11-22 | Outpatient (CLI) | payer MEDICARE, OTHER, SELFPAY ==
[2023-11-22 12:00] LABS: Absolute Lymphocyte Count 1.53 X10^3/uL (0.83-4.51); Absolute Neutrophil Count 4.6 X10^3/uL (2.0-7.7); Basophil# 0.05 X10^3/uL; Basophil% 0.7 % (0-1); Eosinophil# 0.15 X10^3/uL; Eosinophils% 2.1 % (0-5); Hematocrit 38.8 % (37-47); Hemoglobin 12.7 g/dL (12.0-15.0); Lymphocyte # 1.53 X10^3/ul (0.83-4.51); Lymphocyte % 21.8 % (19-41); Mean Corp Hgb Conc 32.7 g/dL (32-36); Mean Corpuscular Hgb 28.5 pg (27.0-32.0); Mean Corpuscular Volume 87.2 fL (81-99); Mean Platelet Vol. 10.6 fl (6.2-12.0); Monocyte# 0.72 X10^3/uL; Monocyte% 10.2 % (0-10); NRBC Flagged by Analyzer 0 % (0-5); Neutrophil # 4.56 X10^3/uL (2.7-7.7); Neutrophil % 64.9 % (47-70); Platelet Count 236 K/mm3 (150-450); RBC Distribution Width CV 14.1 % (11.6-14.6); RBC Distribution Width SD 45.1 fl (35.1-43.9); Red Blood Count 4.45 M/mm3 (4.2-5.4)
[2023-11-22 12:08] LABS: BNP,B-Type NATRIURETIC PEPTIDE 213.5 pg/mL (0-100)
[2023-11-22 13:00] LABS: Anion Gap 5 (5-15); BUN 22 mg/dL (7-18); BUN/Creat Ratio 15.9 RATIO (10-20); Calcium,Total 9.2 mg/dL (8.5-10.1); Chloride 106 mmol/L (98-107); Creatinine, Serum 1.38 mg/dL (0.55-1.02); EST Glomerular Filtration Rate 38 mL/min (>60); Est Glom Filt Rate - Afr Amer 47 mL/min (>60); Glucose 123 mg/dL (74-106); Potassium 3.2 mmol/L (3.5-5.1); Sodium Level 140 mmol/L (136-145)
== END | disposition home or self-care (01) ==
LOC: LAB 11:14
PROVIDERS: PCP Family Medicine; Referring Provider Nurse Practitioner Gerontology; Visit Provider Nurse Practitioner Gerontology
DX: R06.09 Other forms of dyspnea (principal)
CPT/HCPCS: 36415; 80048; 83880; 85025